=== PATIENT | female | born 1955 | race Two or more races ===

== ENCOUNTER 2017-03-19 21:00 | Inpatient (IN) | payer MEDICAID ==
[~2017-03-19] VITALS: Ht 177.8 cm; Wt 116.2 kg
[2017-03-19] MEDS ORDERED: ASPIRIN 81MG TABLET PO ONE (22:30)
[2017-03-19 23:02] LABS: BASOPHILS % 0.7 % (0.0-2.0); EOSINOPHILS % 6.1 % (0.0-5.0); HEMATOCRIT. 37.5 % (36.0-48.0); HEMOGLOBIN. 12.3 g/dL (12.0-16.0); LYMPHOCYTES % 28.3 % (20.0-50.0); MEAN CORPUSCULAR HEMOGLOBIN 26.5 pg (28.0-32.0); MEAN CORPUSCULAR VOLUME 80.8 fL (81.0-99.0); MEAN PLATELET VOLUME 7.1 fl (7.4-10.4); MONOCYTES % 7.3 % (2.0-8.0); NEUTROPHILS % 57.6 % (40.0-76.0); PLATELET 333 x1000/uL (130-400); RED BLOOD CELL COUNT 4.64 mill/uL (4.2-5.4); RED CELL DISTRIBUTION WIDTH 15.1 % (11.6-14.6)
[2017-03-19 23:07] LABS: INR 1.1; PROTHROMBIN TIME 11.2 sec (9.4-11.6)
[2017-03-19 23:16] LABS: CARBON DIOXIDE 27 mEq/L (21-32); CHLORIDE 99 mEq/L (98-107); ETHANOL BLOOD < 10 mg/dL; TROPONIN I < 0.02 ng/mL (0.00-0.04)
[2017-03-20 01:52] LABS: *AMPHETAMINES SCREEN URINE NEGATIVE (NEGATIVE); *BARBITURATES SCREEN URINE NEGATIVE (NEGATIVE); *BENZODIAZEPINES SCREEN URINE NEGATIVE (NEGATIVE); CANNABINOID URINE SCREEN NEGATIVE (NEGATIVE); METHADONE URINE SCREEN NEGATIVE (NEGATIVE); OPIATES URINE SCREEN NEGATIVE (NEGATIVE); PHENCYCLIDINE URINE SCREEN NEGATIVE (NEGATIVE)
[2017-03-20] MEDS ORDERED: LABETALOL 5MG/ML SYR 20 MG/4 ML SYRINGE IV SCH (02:15)
[2017-03-20 02:48] LABS: *COCAINE SCREEN URINE NEGATIVE (NEGATIVE)
[2017-03-20] MEDS ORDERED: SODIUM CHLORIDE 0.9% 1,000 ML IV SCH (10:14)
[2017-03-20] MEDS ORDERED: DOCUSATE SODIUM 100MG CAPSULE PO PRN (10:15)
[2017-03-20] MEDS ORDERED: CLONIDINE 0.1MG TABLET PO PRN (10:15)
[2017-03-20] MEDS ORDERED: MAGNESIUM/ALUMINUM HYDROXIDE/SIMETHICONE 30ML UDC PO PRN (10:15)
[2017-03-20] MEDS ORDERED: ONDANSETRON HCL 4MG/2ML VIAL IV PRN (10:15)
[2017-03-20] MEDS ORDERED: LORAZEPAM 0.5MG TABLET PO PRN (10:15)
[2017-03-20] MEDS ORDERED: IPRATROPIUM/ALBUTEROL 0.5-3(2.5)MG/3ML NEB INH PRN (10:15)
[2017-03-20] MEDS ORDERED: ACETAMINOPHEN 325MG TABLET PO PRN (10:15)
[2017-03-20 15:16] LABS: TROPONIN I < 0.02 ng/mL (0.00-0.04)
[2017-03-20 15:21] LABS: CREATINE KINASE 61 IU/L (26-192)
[2017-03-20 16:03] VITALS: BP 158/83
[2017-03-20 20:00] VITALS: BP 138/71
[2017-03-20] MEDS ORDERED: HALO100A IM (21:35)
[2017-03-20] MEDS ORDERED: AMLO5TAB4 PO (21:35)
[2017-03-20 23:08] LABS: BG BASE EXCESS 0.1 mmol/L (-2.0-2.0); BG CARBOXYHEMOGLOBIN 0.3 % (0.5-1.5); BG FRACTION INSPIRED OXYGEN 21; BG HCO3 ACT 24.9 mmol/L (22.0-26.0); BG METHEMOGLOBIN 0.4 % (0.0-1.5); BG OXYHEMOGLOBIN 95.3 % (94.0-97.0); BG PH 7.401 (7.350-7.450); BG SAMPLE SITE RIGHT RADIAL; BG TOTAL HEMOGLOBIN 12.6 g/dL (12.0-18.0); BG VENT MODE ROOM AIR
[2017-03-20 23:34] LABS: CREATINE KINASE 63 IU/L (26-192); TROPONIN I < 0.02 ng/mL (0.00-0.04)
[2017-03-21] VITALS: BP 145/80
[2017-03-21 00:27] LABS: CLARITY URINE CLEAR (CLEAR); COLOR URINE YELLOW (YELLOW); KETONES URINE NEGATIVE (NEGATIVE); LEUKOCYTE ESTERASE URINE 1+ (NEGATIVE); NITRITE URINE NEGATIVE (NEGATIVE); OCCULT BLOOD URINE NEGATIVE (NEGATIVE); PROTEIN URINE NEGATIVE (NEGATIVE); SPECIFIC GRAVITY URINE 1.009 (1.005-1.030); UROBILINOGEN URINE 0.2 E.U./dL (0.2-1.0)
[2017-03-21 04:00] VITALS: BP 129/93
[2017-03-21] MEDS ORDERED: BLOOD SUGAR DIAGNOSTIC STRIP TEST SCH (06:45)
[2017-03-21 07:30] LABS: BASOPHILS % 0.6 % (0.0-2.0); EOSINOPHILS % 4.8 % (0.0-5.0); HEMATOCRIT. 37.3 % (36.0-48.0); LYMPHOCYTES % 26.5 % (20.0-50.0); MEAN CORPUSCULAR VOLUME 80.9 fL (81.0-99.0); MEAN PLATELET VOLUME 7.2 fl (7.4-10.4); MONOCYTES % 6.9 % (2.0-8.0); NEUTROPHILS % 61.2 % (40.0-76.0); PLATELET 348 x1000/uL (130-400); RED BLOOD CELL COUNT 4.61 mill/uL (4.2-5.4)
[2017-03-21 08:00] VITALS: BP 102/55
[2017-03-21 09:15] LABS: CARBON DIOXIDE 25 mEq/L (21-32); CHLORIDE 105 mEq/L (98-107); HDL CHOLESTEROL 56 mg/dL (40-59); LDL CHOLESTEROL 134 mg/dL (5-100)
[2017-03-21] MEDS ORDERED: REGADENOSON 0.4 MG/5 ML IV ONE (09:30)
[2017-03-21] MEDS ORDERED: CLONIDINE 0.2MG TABLET PO PRN (09:45)
[2017-03-21] MEDS ORDERED: LOSARTAN POTASSIUM 25 MG TABLET PO SCH (09:45)
[2017-03-21] MEDS ORDERED: ASPIRIN 81MG TABLET PO SCH (10:00)
[2017-03-21 12:00] VITALS: BP 136/67
[2017-03-21 14:52] VITALS: BP 136/67
[2017-03-21 16:00] VITALS: BP 134/66
[2017-03-21] MEDS ORDERED: ATORVASTATIN CALCIUM 10MG TABLET PO SCH (21:00)
[2017-03-21] MEDS ORDERED: ATORVASTATIN CALCIUM 20MG TABLET PO SCH (21:00)
== END 2017-03-21 18:21 | disposition home or self-care (01) | DRG 198 ==
LOC: ER 21:00 → 5WST 03-20 00:32 → ENRESERV 03-20 13:06
PROVIDERS: ADMIT Internal Medicine Geriatric Medicine; ATTEND Internal Medicine Geriatric Medicine
DX: R07.2 Precordial pain (principal); I20.9 Angina pectoris, unspecified; E87.1 Hypo-osmolality and hyponatremia; I10 Essential (primary) hypertension; F20.9 Schizophrenia, unspecified; E78.00 Pure hypercholesterolemia, unspecified; R73.9 Hyperglycemia, unspecified; Z79.82 Long term (current) use of aspirin; Z79.899 Other long term (current) drug therapy; Z91.14 Patient's other noncompliance with medication regimen; Z98.891 History of uterine scar from previous surgery; E66.9 Obesity, unspecified; Z68.36 Body mass index [BMI] 36.0-36.9, adult
CPT/HCPCS: 36415; 36600; 71045; 80048; 80053; 80061; 80305; 81001; 82375; 82550; 82805; 82962; 83735; 83880; 84443; 84484; 85025; 85379; 85610; 87086; 93005; 93306; 93970; 96374; 99291; G0482; J3490; J7030

== ENCOUNTER 2018-04-23 17:41 | Emergency (ER) | payer MEDICAID ==
[~2018-04-23] VITALS: Ht 175.3 cm; Wt 101.0 kg
[~2018-04-23 17:41] MED LIST: HALO100A IM
[2018-04-23] MEDS ORDERED: AMLO10TA80 PO (18:06)
[2018-04-23] MEDS ORDERED: LOSA50TA20 PO ×2 (18:06→18:09)
[2018-04-23] MEDS ORDERED: ATOR20TA65 PO (18:07)
[2018-04-23 20:30] VITALS: BP 156/90
[2018-04-23 20:30] LABS: CLARITY URINE CLEAR (CLEAR); COLOR URINE YELLOW (YELLOW); KETONES URINE TRACE (NEGATIVE); LEUKOCYTE ESTERASE URINE NEGATIVE (NEGATIVE); NITRITE URINE NEGATIVE (NEGATIVE); OCCULT BLOOD URINE TRACE (NEGATIVE); PH URINE 5.5 (4.5-8.0); PROTEIN URINE NEGATIVE (NEGATIVE); SPECIFIC GRAVITY URINE 1.005 (1.005-1.030); UROBILINOGEN URINE 0.2 E.U./dL (0.2-1.0)
== END 2018-04-23 22:03 | disposition left against medical advice (07) ==
LOC: ER 17:41
DX: Z53.21 Procedure and treatment not carried out due to patient leaving prior to being seen by health care provider (principal); F20.9 Schizophrenia, unspecified; I10 Essential (primary) hypertension; E78.00 Pure hypercholesterolemia, unspecified
CPT/HCPCS: 81025